=== PATIENT | female | born 1940 | race Caucasian/White ===

== ENCOUNTER 2018-04-27 12:40 | Emergency (ER) | payer OTHER ==
[~2018-04-27] VITALS: Ht 162.6 cm; Wt 63.5 kg
[2018-04-27] MEDS ORDERED: ALDOMET250 MG PO (13:01)
[2018-04-27] MEDS ORDERED: BUTALB-ACETAMI1 EAC2 (13:01)
== END 2018-04-27 16:36 | disposition home or self-care (01) ==
LOC: ER 12:40
DX: I16.0 Hypertensive urgency (principal); I10 Essential (primary) hypertension; F06.4 Anxiety disorder due to known physiological condition